=== PATIENT | male | born 1975 | race Caucasian/White ===

== ENCOUNTER 2019-10-01 15:52 | Inpatient (IN) | payer BC, OTHER ==
[~2019-10-01] VITALS: Ht 182.9 cm; Wt 112.9 kg
--- NOTE | ~2019-10-01 | O ---
[facility] [place] [address] OPERATIVE REPORT Name: CAMILLE WALDROP Room #: 439-P [facility].#: [id number] Admission: 10/01/19 Attend Phys: Miah Pisano MD Discharge: 10/03/19 Date of : 77 Report #: [id number] THIS REPORT FOR: //name// CC: [facility] physician/PCP Miah Pisano DATE OF SERVICE: 10/02/2019 PREOPERATIVE DIAGNOSIS: Acute appendicitis. POSTOPERATIVE DIAGNOSIS: Acute appendicitis. OPERATIVE PROCEDURE DONE: Laparoscopic appendectomy. OPERATING SURGEON: Miah Pisano MD. INDICATIONS FOR THE PROCEDURE: The patient is a 44-year-old male, who presented with complaints of 4-day history of right lower quadrant pain. Clinical exam and CT scan showed features of acute appendicitis. The patient was advised laparoscopic appendectomy. The patient showed understanding and agreed to proceed. DESCRIPTION OF PROCEDURE: After explaining to the patient in detail and an informed consent was obtained, the patient was identified in the preoperative holding area. The patient was transferred to the operating room and was placed in supine position. Sequential compressive devices were placed for a DVT prophylaxis. Preoperative antibiotics were given. After induction of anesthesia, the abdomen was prepped and draped in a sterile fashion. Through a left upper quadrant stab incision and a using Veress needle technique, pneumoperitoneum was created. Thereafter, through a 1 cm incision in the left lower quadrant and through a 5 mm trocar, the peritoneal cavity was entered. Another 12 mm trocar was placed through a supraumbilical incision and another 5 mm trocar was placed in the suprapubic region approximately about 3 cm above the pubic physis. On the initial inspection, patient was noted to have an appendix that was firmly adherent onto the lateral abdominal wall. Part of the base of the appendix was necrotic. As soon as I mobilized the appendix, it ruptured and some pus was spilled out. I mobilized the appendix from the surrounding adhesions. A window was created in the mesoappendix and the appendix was then divided at the base using a JASON blue load stapler. The mesoappendix was then divided with the another blue load stapler. The appendix was then retrieved. Thorough saline irrigation was given. Absolute hemostasis was ensured. The abdomen was then deflated. Incisions were closed with 4-0 Monocryl. The umbilical incision was closed with 0 Vicryl for the fascia. Skin was closed with 4-0 Monocryl for all the incisions. Dermabond was applied. The patient was stable at the end of the procedure. The patient was awoken from anesthesia and was transferred to the recovery room in stable condition. [address] [address] OPERATIVE REPORT Name: CAMILLE WALDROP Room #: 439-P [facility].#: [id number] Admission: 10/01/19 Attend Phys: Miah Pisano MD Discharge: 10/03/19 Date of : 77 Report #: [id number] ESTIMATED BLOOD LOSS: 20 mL. CONDITION OF THE PATIENT: Stable. FLUIDS GIVEN: Per anesthesia notes. SPECIMEN SENT: Appendix. COMPLICATIONS: None. ANESTHESIA: General anesthesia. By: [id number] Miah Pisano MD /nt
[2019-10-01 15:53] VITALS: BP 139/86
[2019-10-01] MEDS ORDERED: SYNTHROID112 MC1 PO (16:31)
[2019-10-01 16:38] LABS: ABSOLUTE NEUTROPHILS 9.9 thou/uL (1.4-8.2); BASOPHILS 0.8 % (0.0-2.0); EOSINOPHILS 2.8 % (0.0-3.0); HEMATOCRIT 44.7 % (42.0-52.0); HEMOGLOBIN 15.2 gm/dL (14.0-18.0); LYMPHOCYTES 14.8 % (24.0-44.0); MCH 31.1 pg (26.0-34.0); MCHC 34.1 g/dL (28.0-37.0); MCV 91.1 fL (80.0-100.0); PLATELET COUNT 282 thou/uL (150-400); POLYS 74.6 % (36.0-66.0); RBC 4.91 mil/uL (4.50-6.00); WBC 13.2 thou/uL (4.0-11.0)
[2019-10-01 16:48] LABS: CALCIUM 9.1 mg/dL (8.5-10.1); CREATININE 1.1 mg/dL (0.7-1.3); POTASSIUM 3.7 mmol/L (3.5-5.1)
[2019-10-01 16:54] LABS: ALBUMIN 3.9 g/dL (3.4-5.0); TOTAL BILIRUBIN 0.5 mg/dL (<0.1-1.0); TOTAL PROTEIN 8.3 g/dL (6.4-8.2)
[2019-10-01 19:44] LABS: URINE BILIRUBIN NEGATIVE (Negative); URINE BLOOD TRACE (Negative); URINE CLARITY CLEAR; URINE COLOR YELLOW; URINE GLUCOSE-RANDOM* NEGATIVE (Negative); URINE KETONES NEGATIVE (Negative); URINE LEUKOCYTES-REFLEX NEGATIVE (Negative); URINE NITRITE-REFLEX NEGATIVE (Negative); URINE PROTEIN (DIPSTICK) NEGATIVE (Negative)
[2019-10-01 19:57] VITALS: BP 109/80
--- NOTE | 2019-10-01 20:19 | NUR ---
HAND OFF FAXED AT 2003
[2019-10-01 20:28] VITALS: BP 117/78
[2019-10-01 21:59] VITALS: BP 112/75
--- NOTE | 2019-10-02 01:49 | NUR ---
PATIENT IS A&OX4 AND IS ADMITTED FROM ED W ACUTE APPENDICITIS. PATIENT ARRIVED TO UNIT AT 2049. ASSESSMENT COMPLETED WITH ASSIST FROM ZULMA JAIMES. VSS, DENIES PAIN, O2 SATS WNL ON RA. PATIENT IS AMBULATORY W NO C/O PAIN AND IS STEADY. PATIENT EDUCATED ON NPO STATUS AFTER MIDNIGHT FOR EARLY APPENDECTOMY. PATIENT VOIDED SHORTLY AFTER ARRIVAL. SPOKE TO UNITIZER PRACTIONER AND MORPHINE ADDED FOR BREAKTHROUGH PAIN. PATIENT REPORTS HYPOTHYROIDISM W/ NO OTHER PAST MEDICAL HX. SPOUSE VISITED AND AT BEDSIDE. PATIENT WILL CALL OUT APPROPRIATELY. WILL CONTINUE TO MONITOR
[2019-10-02 04:31] VITALS: BP 100/66
[2019-10-02 04:34] LABS: CALCIUM 8.4 mg/dL (8.5-10.1); CREATININE 1.1 mg/dL (0.7-1.3); POTASSIUM 3.7 mmol/L (3.5-5.1)
[2019-10-02 04:53] LABS: HEMATOCRIT 38.4 % (42.0-52.0); MCH 31.2 pg (26.0-34.0); MCV 91.7 fL (80.0-100.0); RBC 4.18 mil/uL (4.50-6.00); RDW 12.8 % (10.5-14.5); WBC 8.1 thou/uL (4.0-11.0)
[2019-10-02 07:25] VITALS: BP 102/68
--- NOTE | 2019-10-02 08:34 | NUR ---
PT RESTING IN BED NO C/O PAIN AWAITNG SURGERY THIS NURSE TRIED TO CALL NO ANSWER AT THIS TIME. AT BEDSIDE.
[2019-10-02 08:49] LABS: APTT 33.5 Seconds (24.5-32.8); PROTIME 10.6 Seconds (9.3-11.4)
--- NOTE | 2019-10-02 10:26 | NUR ---
CALLED CONSULT TO DR PIERRE HE WILL DO SURGERY AT 1200. THIS NURSE PRINTED CONSENT FOR APPENDICTOMY
--- NOTE | 2019-10-02 12:18 | NUR ---
CALLED SURGERY FOR FAMILY TO GET TIME. NURSE STATED 1315 SURGERY TIME WILL P/U A LITTLE BEFORE. 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 PT W/O PAIN OR RESP DISTRESS AT THIS TIME.
--- NOTE | 2019-10-02 12:56 | NUR ---
PATIENT LEFT UNIT AT THIS TIME FOR PRE-OP. AT BEDSIDE.
--- NOTE | 2019-10-02 13:07 | NUR ---
PATIENT UP TO BSC FOR LARGE BM. PT STOOD AND PIVOTED WITH STRONG STEADY GAIT. RIVERA CATH DCD EARLIER AND IS URINATING CLEAR YELLOW URINE. PT W/O PAIN OR RESP DISTRESS. PT PLEASANT AND COOPERATIVE WITH CARE.
[2019-10-02 15:50] VITALS: BP 104/70
--- NOTE | 2019-10-02 16:09 | NUR ---
PATIENT RETURNED FROM SURGERY. V.S. 98.5 18 80 104/70 O2 SAT= 93% RA. IV FLUIDS INFUSING. PT GIVEN SPRITE, BROTH AND JELLO. 3 LAP SITES WITH DURMA JORDAN THAT IS INTACT. PT W/O PAIN AT THIS TIME. AT BEDSIDE.
[2019-10-02 19:34] VITALS: BP 101/65
[2019-10-03 00:03] VITALS: BP 100/75
[2019-10-03 04:06] VITALS: BP 114/66
--- NOTE | 2019-10-03 05:31 | NUR ---
PATIENT ALERT AND ORIENTED X4. C/O PAIN, MED GIVEN WITH GOOD RESULTS. HAS 4 SMALL INCISIONS ON ABD. ALL WITH DERMABOND. NO REDNESS, DRAINAGE NOTED. UP TO BATHROOM AND THEN A WALK IN THE [place] LAST EVENING. INSTRUCTED TO COUGH AND DEEP BREATH SEVERAL TIMES WHILE AWAKE. IV PATENT. SLEPT OFF AND ON DURING NIGHT.
--- NOTE | 2019-10-03 07:26 | NUR ---
PT SLEEPING EASILY AWAKENED. PT W/O PAIN OR RESP DISTRESS AT THIS TIME. CONTINUES ON IV ABT. PT WANTS TO DC TO HOME TODAY. PLEASANT AND COOPERATIVE WITH CARE.
[2019-10-03 10:35] VITALS: BP 114/66
[2019-10-03 12:50] VITALS: BP 114/66
[2019-10-03] MEDS ORDERED: PERCOCET PO (13:39)
[2019-10-03 14:21] VITALS: BP 114/66
--- NOTE | 2019-10-03 14:41 | NUR ---
DISCHARGE PAPERS GONE OVER WITH PATIENT SIGNED AND COPY IN CHART. RX GIVEN TO PATIENT. IV ACSESS DCD. ALL BELONGINGS PACKED AND SENT WITH PATIENT HERE TO DRIVE HOME. PT W/O PAIN OR RESP DISTRESS AT DISCHARGE WAS GIVEN PRN PAIN MED EARLIER.
--- NOTE | 2019-10-05 16:06 | PATH ---
[facility] [address] [place] [address] PATHOLOGY RPT PROCEDURE Name: CAMILLE NORIEGA Room #: 439-P [facility] .R.#: [id number] Admission: 10/01/19 Date of : 77 Discharge: 10/03/19 Report #: [id number] Path Case #: [id number] [facility] Accession Number: [id number] . 01 Material submitted: . appendix - APPENDIX . 01 Clinical history: . Acute appendicitis . 02 Diagnosis: Appendix, appendectomy: - Marked acute appendicitis along with marked acute serositis. . (IUV:mml; 10/05/2019) [facility] 10/05/2019 1206 Local . 02 Electronically signed: . Fannie Valladares MD, Pathologist NPI- [id number] . 01 Gross description: . The specimen is received in formalin, labeled "Camille Noriega, appendix". Received is a vermiform appendix measuring 8.3 cm in length by up to 1.2 cm in diameter with a large amount of attached mesoappendix. The specimen is prominently fat wrapped exposing a slight amount of pale dobbs mucosa, which is slightly shaggy in appearance. The surgical margin is closed with a line of chirag. The chirag are removed the new margin is inked black. Sectioning reveals a pinpoint to occluded lumen. Near the distal tip, there is an area of possible abscess within the appendix. The specimen is submitted representatively as follows: . A1 proximal margin and most distal aspect of bisected tip, with adjacent possible abscess A2 section just proximal to distal tip with adjacent possible abscess A3-A4 additional ambulatory services representative sections of appendix submitted from proximal to distal aspects. (CAA; 10/04/2019) QAC/QAC 10/04/2019 1354 Local . 02 Pathologist provided ICD-10: K35.80, K65.8 . 02 CPT . 734095 Specimen Comment: Report sent to Performed at: [address] [address] PATHOLOGY RPT PROCEDURE Name: [place] Room #: 439-P [facility] IN .R.#: [id number] Admission: 10/01/19 Date of : 77 Discharge: 10/03/19 Report #: [id number] Path Case #: [id number] [facility] [place] [address] [facility] [address], [place] [id number] MD Deon Loco MD Phone: [phone] Performed at: [address] [id number] MD Fannie Valladares MD Phone: [phone]
== END 2019-10-03 14:45 | disposition home or self-care (01) | DRG 343 ==
LOC: ER 15:52 → 4S 18:23 → EROBS 18:23 → 4S 20:31
PROVIDERS: Emergency Medicine; Nurse Practitioner; Nurse Practitioner Acute Care; ADMIT Surgery
PROC: 0DTJ4ZZ Resection of Appendix, Percutaneous Endoscopic Approach (ICD-10-PCS; principal; 2019-10-02)
DX: K35.80 Unspecified acute appendicitis (principal); E78.5 Hyperlipidemia, unspecified; F17.290 Nicotine dependence, other tobacco product, uncomplicated; E03.9 Hypothyroidism, unspecified
CPT/HCPCS: 10195; 50101; 50411; 50555; 50558; 50739; 50740; 51489; 51975; 52265; 52266; 53310; 54118; 56525; 56526; 62110; 62900; 70005